=== PATIENT | male | born 1940 | race Caucasian/White ===

== ENCOUNTER 2016-05-08 08:36 | Day surgery (SDC) | payer OTHER ==
[~2016-05-08] VITALS: Ht 166.4 cm; Wt 89.4 kg
[~2016-05-08 08:36] MED LIST: ALDOMET500 MG PO; AMBIEN CR12.5 MG PO; APRESOLINE50 M1 PO; BYSTOLIC5 MG PO; CLONAZEPAM1 MG PO; DILAUDID2 MG PO; FUROSEMIDE20 MG PO; HYDRALAZINE HCL50 MG PO; HYDROMORPHONE HC2 MG PO; HYTRIN5 MG PO; IBUPROFEN600 MG PO; KLONOPIN1 MG PO; LASIX20 MG PO; LIDOCAINE20 MG/1 M5 PO; LOSARTAN POTAS100 MG PO; LYRICA50 MG PO; METHYLDOPA500 MG PO; MICRO-K10 ME1 PO; MICRO-K10 ME2 PO; MOTRIN600 M1 PO; MOVE FREE1 CAPSULE PO; OMEGA 3 1,0001 EACH PO; PRAVACHOL10 MG PO; PRAVASTATIN SOD40 MG PO; PREVACID30 MG PO; PROCARDIA XL30 MG PO; PROCARDIA20 MG PO; SINGULAIR10 MG PO; SOMA350 MG PO; TERAZOSIN HCL5 MG PO; VALTURNA 300-31 EACH PO; VITAMIN D-32000 UNIT PO; [UNRECOGNIZED DRUG - REMARK] PO
[2016-05-20] MEDS ORDERED: HYDROCORTISONE10 MG PO (13:35)
== END 2016-05-08 10:36 | disposition home or self-care (01) ==
LOC: PAIN 08:36 → SDC 09:15 → PAIN 09:15
DX: M54.16 Radiculopathy, lumbar region (principal); M51.36 Other intervertebral disc degeneration, lumbar region; F41.1 Generalized anxiety disorder; Z87.891 Personal history of nicotine dependence; R42 Dizziness and giddiness; I12.9 Hypertensive chronic kidney disease with stage 1 through stage 4 chronic kidney disease, or unspecified chronic kidney disease; N18.9 Chronic kidney disease, unspecified; M51.24 Other intervertebral disc displacement, thoracic region; K21.9 Gastro-esophageal reflux disease without esophagitis; G89.29 Other chronic pain
CPT/HCPCS: J1100; J2250; J3010

== ENCOUNTER 2016-05-22 08:24 | Day surgery (SDC) | payer OTHER ==
[~2016-05-22] VITALS: Ht 166.4 cm; Wt 89.4 kg
[~2016-05-22 08:24] MED LIST changes: +HYDROCORTISONE10 MG PO
== END 2016-05-22 10:14 | disposition home or self-care (01) ==
LOC: PAIN 08:24 → SDC 09:00 → PAIN 09:00
PROC: 3E0S33Z Introduction of Anti-inflammatory into Epidural Space, Percutaneous Approach (ICD-10-PCS; principal; 2016-05-22)
DX: M54.16 Radiculopathy, lumbar region (principal); M51.26 Other intervertebral disc displacement, lumbar region; F41.9 Anxiety disorder, unspecified; M48.06 Spinal stenosis, lumbar region; E78.5 Hyperlipidemia, unspecified; K21.9 Gastro-esophageal reflux disease without esophagitis; G89.29 Other chronic pain; E55.9 Vitamin D deficiency, unspecified; Z87.891 Personal history of nicotine dependence; I12.9 Hypertensive chronic kidney disease with stage 1 through stage 4 chronic kidney disease, or unspecified chronic kidney disease; N18.9 Chronic kidney disease, unspecified; Z80.52 Family history of malignant neoplasm of bladder; Z80.7 Family history of other malignant neoplasms of lymphoid, hematopoietic and related tissues; Z88.1 Allergy status to other antibiotic agents; Z88.0 Allergy status to penicillin; Z88.8 Allergy status to other drugs, medicaments and biological substances
CPT/HCPCS: J1100; J2250; J3010

== ENCOUNTER 2016-08-14 12:15 | Day surgery (SDC) | payer OTHER ==
[~2016-08-14] VITALS: Ht 166.4 cm; Wt 88.0 kg
[~2016-08-14 12:15] MED LIST changes: +LO-DOSE ASPIRIN81 M2 PO; +MUCUS RELIEF C400 MG PO
[2016-08-14] MEDS ORDERED: BUTALB-ACETAMI1 EAC2 PO (12:40)
== END 2016-08-14 13:44 | disposition home or self-care (01) ==
LOC: PAIN 12:15 → SDC 12:45 → PAIN 12:45
PROC: 3E0T3TZ Introduction of Destructive Agent into Peripheral Nerves and Plexi, Percutaneous Approach (ICD-10-PCS; principal; 2016-08-14)
PROC: BR141ZZ Fluoroscopy of Cervical Facet Joint(s) using Low Osmolar Contrast (ICD-10-PCS; 2016-08-14)
DX: M54.12 Radiculopathy, cervical region (principal); I12.9 Hypertensive chronic kidney disease with stage 1 through stage 4 chronic kidney disease, or unspecified chronic kidney disease; N18.9 Chronic kidney disease, unspecified; E78.5 Hyperlipidemia, unspecified; Z88.0 Allergy status to penicillin; Z79.899 Other long term (current) drug therapy
CPT/HCPCS: J1030; J2250; J3010; S0020

== ENCOUNTER 2016-08-21 13:36 | Day surgery (SDC) | payer OTHER ==
[~2016-08-21] VITALS: Ht 166.4 cm; Wt 87.1 kg
[~2016-08-21 13:36] MED LIST changes: +BUTALB-ACETAMI1 EAC2 PO
== END 2016-08-21 15:14 | disposition home or self-care (01) ==
LOC: PAIN 13:36 → SDC 14:15 → PAIN 14:15
DX: M47.812 Spondylosis without myelopathy or radiculopathy, cervical region (principal); M54.16 Radiculopathy, lumbar region; F41.9 Anxiety disorder, unspecified; I12.9 Hypertensive chronic kidney disease with stage 1 through stage 4 chronic kidney disease, or unspecified chronic kidney disease; N18.9 Chronic kidney disease, unspecified; K21.9 Gastro-esophageal reflux disease without esophagitis; M51.24 Other intervertebral disc displacement, thoracic region; J45.909 Unspecified asthma, uncomplicated; Z87.891 Personal history of nicotine dependence; Z79.899 Other long term (current) drug therapy; Z88.0 Allergy status to penicillin; Z79.891 Long term (current) use of opiate analgesic
CPT/HCPCS: J1030; J2250; J3010

== ENCOUNTER 2016-10-13 08:20 | Day surgery (SDC) | payer OTHER ==
[~2016-10-13] VITALS: Ht 166.4 cm; Wt 88.2 kg
== END 2016-10-13 10:33 | disposition home or self-care (01) ==
LOC: PAIN 08:20 → SDC 09:00 → PAIN 10:33
DX: M47.26 Other spondylosis with radiculopathy, lumbar region (principal); M51.16 Intervertebral disc disorders with radiculopathy, lumbar region; M54.5 Low back pain; G89.29 Other chronic pain; M48.06 Spinal stenosis, lumbar region; F41.9 Anxiety disorder, unspecified; Z87.891 Personal history of nicotine dependence; K21.9 Gastro-esophageal reflux disease without esophagitis; I10 Essential (primary) hypertension; J45.909 Unspecified asthma, uncomplicated; Z79.899 Other long term (current) drug therapy; Z88.0 Allergy status to penicillin
CPT/HCPCS: J1030; J2250; J3010; S0020

== ENCOUNTER 2016-10-23 13:11 | Day surgery (SDC) | payer OTHER ==
[~2016-10-23] VITALS: Ht 166.4 cm; Wt 88.2 kg
== END 2016-10-23 15:15 | disposition home or self-care (01) ==
LOC: PAIN 13:11 → SDC 13:45 → PAIN 13:45
DX: M47.26 Other spondylosis with radiculopathy, lumbar region (principal); M51.16 Intervertebral disc disorders with radiculopathy, lumbar region; G89.29 Other chronic pain; M54.5 Low back pain; M47.812 Spondylosis without myelopathy or radiculopathy, cervical region; I12.9 Hypertensive chronic kidney disease with stage 1 through stage 4 chronic kidney disease, or unspecified chronic kidney disease; N18.9 Chronic kidney disease, unspecified; F41.9 Anxiety disorder, unspecified; Z87.891 Personal history of nicotine dependence; Z88.0 Allergy status to penicillin; Z79.82 Long term (current) use of aspirin; Z79.891 Long term (current) use of opiate analgesic
CPT/HCPCS: J1030; J3010; S0020

== ENCOUNTER 2016-12-28 14:22 | Emergency (ER) | payer OTHER ==
[~2016-12-28] VITALS: Ht 165.1 cm; Wt 88.0 kg
[2016-12-28 15:54] LABS: HEMATOCRIT 38.2 % (38.0-50.0); MCH 33.7 PG (29.0-34.0); MCHC 35.9 G/DL (30.0-36.0); MCV 93.9 FL (86-99); MEAN PLAT.VOLUME 9.7 uM^3 (9.0-12.4); PLATELET COUNT 109 K/uL (156-360); RBC DIS.WIDTH-CV 11.9 % (11.8-14.6); RBC DIS.WIDTH-SD 40.8 % (39-53); RED BLOOD COUNT 4.07 M/uL (4.00-5.50); WHITE BLOOD COUNT 6.5 K/uL (4.1-10.2)
[2016-12-28 16:03] LABS: CHLORIDE 103 mEq/L (99-109); POTASSIUM 3.9 mEq/L (3.7-5.4); SODIUM 136 mEq/L (136-147)
[2016-12-28 16:05] LABS: GLUCOSE 133 mg/dL (70-99)
[2016-12-28 16:06] LABS: ANION GAP 7 MEQ/L (2-14)
[2016-12-28 16:09] LABS: GFR ESTIMATE (CALCULATED) > 59 mL/min/
[2016-12-28 16:10] LABS: UREA NITROGEN (BUN) 18 mg/dL (9-23)
[2016-12-28] MEDS ORDERED: NAPROXEN500 MG PO (18:21)
[2016-12-28 18:32] VITALS: BP 185/78
== END 2016-12-28 18:35 | disposition home or self-care (01) ==
LOC: EME 14:22
PROVIDERS: Physician Assistant Medical
DX: M25.561 Pain in right knee (principal); Z98.890 Other specified postprocedural states; R21 Rash and other nonspecific skin eruption; R19.7 Diarrhea, unspecified; I12.9 Hypertensive chronic kidney disease with stage 1 through stage 4 chronic kidney disease, or unspecified chronic kidney disease; N18.9 Chronic kidney disease, unspecified; Z79.82 Long term (current) use of aspirin
CPT/HCPCS: 73564; 80048; 85027; 99281; 99284; J1100; J1885